=== PATIENT | female | born 1995 | race Two or more races ===

== ENCOUNTER 2021-10-04 23:23 | Emergency (ER) | payer OTHER ==
[~2021-10-04] VITALS: Ht 162.6 cm; Wt 75.0 kg
[2021-10-05] MEDS ORDERED: LORazepam 2 MG TABLET PO ONE (00:45)
[2021-10-05] MEDS ORDERED: HALOPERIDOL 5 MG TABLET PO ONE (00:45)
[2021-10-05 02:35] VITALS: BP 115/67
== END 2021-10-05 02:38 | disposition home or self-care (01) ==
LOC: EMS 23:24 → EDBD 23:24 → EMS 10-05 02:38
DX: F20.9 Schizophrenia, unspecified (principal); Z86.59 Personal history of other mental and behavioral disorders
CPT/HCPCS: 99284; Z7502; Z7610

== ENCOUNTER 2021-10-06 08:32 | Inpatient (IN) | payer MEDICAID, OTHER ==
[~2021-10-06] VITALS: Ht 162.6 cm; Wt 69.9 kg
[2021-10-06 09:02] LABS: BASOPHILS % (AUTO) 0.7 % (0.0-2.0); EOSINOPHILS % (AUTO) 2.3 % (1.0-6.0); HEMATOCRIT 40.4 % (36-46); HEMOGLOBIN 13.8 g/dL (12.0-16.0); LYMPHOCYTES # (AUTO) 1.5 K/uL (1.0-4.8); LYMPHOCYTES % (AUTO) 17.2 % (22.0-44.0); MEAN CORPUSCULAR HEMOGLOBIN 31.2 pg (26.0-34.0); MEAN CORPUSCULAR HGB CONC 34.1 G/dL (31.0-37.0); MEAN CORPUSCULAR VOLUME 92 fL (80-100); MONOCYTES # (AUTO) 0.6 K/uL (0.1-1.0); MONOCYTES % (AUTO) 7.2 % (2.0-9.0); NEUTROPHILS # (AUTO) 6.5 K/uL (1.8-7.7); NEUTROPHILS % (AUTO) 72.6 % (40.0-70.0); PLATELET COUNT (AUTO) 269 K/uL (150-450); RED BLOOD CELL COUNT(AUTO) 4.42 MIL/uL (4.00-5.20); RED CELL DISTRIBUTION WIDTH 13.4 % (11.5-14.5)
[2021-10-06 09:13] LABS: ANION GAP 17 mmol/L (8-16); CARBON DIOXIDE 28 mmol/L (22-29); CHLORIDE 102 mmol/L (98-107); CREATININE 0.71 mg/dL (0.60-1.30); GLUCOSE,RANDOM 90 mg/dL (70-110); POTASSIUM 4.1 mmol/L (3.5-5.1); SODIUM SERUM 147 mmol/L (136-145); UREA NITROGEN, BLOOD 18 mg/dL (7-18)
[2021-10-06 09:15] LABS: GLOMERULAR FILTR. RATE CALC > 60 mL/min (>60)
[2021-10-06 09:15] LABS: COVID AG,FIA SOURCE NASOPHARYNGEAL
[2021-10-06 09:24] LABS: ALANINE AMINOTRANSFERASE 21 U/L (12-78); ALBUMIN 4.3 g/dL (3.4-5.0); ALKALINE PHOSPHATASE 70 U/L (46-116); ASPARTATE AMINOTRANSFERASE 15 U/L (15-37); BILIRUBIN,TOTAL 0.7 mg/dL (0.1-1.0); HCG,QUANTITATIVE < 1 mIU/mL (0-6)
[2021-10-06] MEDS ORDERED: LORazepam 1 MG TABLET PO ONE (10:00)
[2021-10-06] MEDS ORDERED: HALOPERIDOL 5 MG TABLET PO ONE (10:00)
[2021-10-06] MEDS ORDERED: HALOPERIDOL 5 MG TABLET PO PRN (11:00)
[2021-10-06 11:08] LABS: AMPHET/METH SCREEN,URINE NEGATIVE (NEGATIVE); BARBITURATE SCREEN, URINE NEGATIVE (NEGATIVE); BENZODIAZEPINES SCREEN,URINE NEGATIVE (NEGATIVE); CANNABINOID SCREEN,URINE POSITIVE (NEGATIVE); COCAINE SCREEN,URINE NEGATIVE (NEGATIVE); METHADONE SCREEN, URINE NEGATIVE (NEGATIVE); OPIATE SCREEN,URINE NEGATIVE (NEGATIVE)
[2021-10-06 11:56] LABS: PHENCYCLIDINE SCREEN,URINE NEGATIVE (NEGATIVE)
[2021-10-06 16:33] VITALS: BP 100/66
[2021-10-06 16:34] VITALS: BP 100/66
[2021-10-06] MEDS: ZOLPIDEM TARTRATE 10 MG TABLET PO PRN (20:12)
[2021-10-06 20:50] VITALS: BP 103/62
[2021-10-07] MEDS ORDERED: IBUPROFEN 400 MG TABLET PO PRN (08:00)
[2021-10-07] MEDS ORDERED: ACETAMINOPHEN 325 MG TABLET PO PRN (08:00)
[2021-10-07] MEDS ORDERED: MAGNESIUM HYDROXIDE SUSPENSION 30 ML UDCUP PO PRN (08:00)
[2021-10-07] MEDS ORDERED: NICOTINE 14 MG/24 HOUR PATCH TD PRN (08:00)
[2021-10-07] MEDS ORDERED: DOCUSATE SODIUM 100 MG CAPSULE PO PRN (08:00)
[2021-10-07] MEDS ORDERED: ALBUTEROL SULFATE HFA 90 MCG/PUFF 8 GM INHALER IH PRN (08:00)
[2021-10-07] MEDS ORDERED: GuaiFENesin/D-METHORPHAN [SUGAR-FREE] 200-20MG/10 ML SYRUP UDCUP PO PRN (08:00)
[2021-10-07] MEDS ORDERED: MAG HYDROX/AL HYDROX/SIMETH ES 30 ML SUSPENSION UDCUP PO PRN (08:00)
[2021-10-07] MEDS ORDERED: LOPERAMIDE HCL 2 MG CAPSULE PO PRN (08:00)
[2021-10-07] MEDS ORDERED: PETROLATUM,WHITE 28 GM JELLY TP PRN (08:00)
[2021-10-07] MEDS ORDERED: ONDANSETRON HCL 4 MG TABLET PO PRN (08:00)
[2021-10-07] MEDS ORDERED: CloNIDine HCL 0.1 MG TABLET PO PRN (08:00)
[2021-10-07 08:36] VITALS: BP 100/69
[2021-10-07] MEDS ORDERED: ARIP20TA21 PO (10:50)
[2021-10-07] MEDS: ARIPiprazole 15 MG TABLET PO SCH (11:24)
[2021-10-07] MEDS: LORazepam 2 MG TABLET PO PRN (20:05)
[2021-10-07 20:59] VITALS: BP 101/62
[2021-10-07] MEDS: ZOLPIDEM TARTRATE 10 MG TABLET PO PRN (21:24)
[2021-10-08 02:13] VITALS: BP 120/77
[2021-10-08] MEDS: LORazepam 2 MG TABLET PO PRN ×2 (02:14→19:45)
[2021-10-08 08:28] VITALS: BP 117/71
[2021-10-08] MEDS: ARIPiprazole 15 MG TABLET PO SCH (08:50)
[2021-10-08 20:40] VITALS: BP 104/60
[2021-10-08] MEDS: ZOLPIDEM TARTRATE 10 MG TABLET PO PRN (22:32)
[2021-10-09] MEDS: LORazepam 2 MG TABLET PO PRN ×2 (00:07→21:13)
[2021-10-09 06:59] LABS: ANION GAP 4 mmol/L (8-16); CARBON DIOXIDE 30 mmol/L (22-29); CHLORIDE 102 mmol/L (98-107); CREATININE 0.57 mg/dL (0.60-1.30); GLOMERULAR FILTR. RATE CALC > 60 mL/min (>60); GLUCOSE,RANDOM 83 mg/dL (70-110); POTASSIUM 4.3 mmol/L (3.5-5.1); SODIUM SERUM 136 mmol/L (136-145); UREA NITROGEN, BLOOD 10 mg/dL (7-18)
[2021-10-09] MEDS: ARIPiprazole 15 MG TABLET PO SCH (08:54)
[2021-10-09 09:56] VITALS: BP 110/68
[2021-10-09 20:25] VITALS: BP 112/71
[2021-10-10] MEDS: ZOLPIDEM TARTRATE 10 MG TABLET PO PRN ×2 (00:23→21:08)
[2021-10-10 08:46] VITALS: BP 111/70
[2021-10-10] MEDS: ARIPiprazole 15 MG TABLET PO SCH (09:01)
[2021-10-10 20:43] VITALS: BP 114/64
[2021-10-11 00:12] VITALS: BP 115/78
[2021-10-11] MEDS: LORazepam 2 MG TABLET PO PRN (00:19)
[2021-10-11] MEDS: ARIPiprazole 15 MG TABLET PO SCH (08:44)
[2021-10-11 09:23] VITALS: BP 104/66
[2021-10-11] MEDS ORDERED: ARIP15TA27 PO (12:53)
[2021-10-11 14:01] LABS: GLUCOMETER DEV NAME(LOC) POC.BV
== END 2021-10-11 17:04 | disposition home or self-care (01) | DRG 750 ==
LOC: EMS 08:32 → B2S 11:47
PROVIDERS: ADMIT Psychiatry & Neurology Psychiatry; ATTEND Psychiatry & Neurology Psychiatry
DX: F25.0 Schizoaffective disorder, bipolar type (principal); E87.0 Hyperosmolality and hypernatremia; R45.851 Suicidal ideations; F10.10 Alcohol abuse, uncomplicated; R10.13 Epigastric pain; Z20.822 Contact with and (suspected) exposure to COVID-19
CPT/HCPCS: 80048; 80053; 84702; 85025; 99285; G0480